=== PATIENT | male | born 1960 | race Caucasian/White ===

== ENCOUNTER 2022-07-24 03:05 | Observation (INO) | payer OTHER ==
[2022-07-24] MEDS ORDERED: METOCLOPRAMIDE 10 MG/2mL INJ ONE (03:28)
[2022-07-24] MEDS ORDERED: GLUCAGON 1 MG/VIAL ONE ×2 (03:29→04:14)
[2022-07-24] MEDS ORDERED: MAGNESIUM SULFATE 1 gm IVPB 1 GM/100 ML BAG IV ONE (03:29)
--- NOTE | 2022-07-24 06:22 | ER ---
Nurse's Notes [facility] Name: Jose L Lyons Age: 61 yrs Sex: Male : 1960 Arrival Date: 07/24/2022 Time: 03:09 Bed 14 Private MD: Diagnosis: Food in esophagus Presentation: 07/24 03:21 Chief complaint: Patient states: Food stuck in my throat after dinner last evening at 7 ke1 pm, usually able to pass it after few minutes, but this time unable to get rid of it. Coronavirus screen: Vaccine status: Patient reports receiving the 2nd dose of the covid vaccine. Ebola Screen: No symptoms or risks identified at this time. Initial Sepsis Screen: Does the patient meet any 2 criteria? No. Patient's initial sepsis screen is negative. Does the patient have a suspected source of infection? No. Patient's initial sepsis screen is negative. Risk Assessment: Do you want to hurt yourself or someone else? Patient reports no desire to harm self or others. Onset of symptoms was July 23, 2022 at 19:00. 03:21 Method Of Arrival: Ambulatory ke1 03:21 Acuity: MICHAEL 3 ke1 Triage Assessment: 03:44 General: Appears uncomfortable, Behavior is appropriate for age. Pain: Complains of ke1 pain in epigastric Pain currently is 3 out of 10 on a pain scale. Neuro: Level of Consciousness is awake, alert, Oriented to person, place, time, situation. Respiratory: Airway is patent Trachea midline Respiratory effort is even, unlabored, Respiratory pattern is regular, symmetrical. GI: Bowel sounds present X 4 quads. Historical: - Allergies: 03:24 No Known Allergies; ke1 - PMHx: 03:24 None; ke1 - PSHx: 03:24 None; ke1 - Immunization history:: Client reports receiving the 2nd dose of the Covid vaccine. - Social history:: Smoking status: Patient denies any tobacco usage or history of. - Family history:: not pertinent. - Hospitalizations: : No recent hospitalization is reported. Screenin:42 [facility] ED Fall Risk Assessment (Adult) History of falling in the last 3 months, ke1 including since admission No falls in past 3 months (0 pts) Confusion or Disorientation No (0 pts) Intoxicated or Sedated No (0 pts) Impaired Gait No (0 pts) Mobility Assist Device Used No (0 pt) Altered Elimination No (0 pt) Score/Fall Risk Level 0 - 2 = Low Risk. Kjy Dumpty Scale Fall Assessment Tool (age< 18yrs) Age 13 years and above (1 pt) Gender Male (2 pts) Diagnosis Other diagnosis (1 pt) Cognitive Impairments Oriented to own ability (1 pt) Environmental Factors Outpatient area (1 pt) Response to Surgery/Sedation/Anesthesia More than 48 hours/None (1 pt) Medication Usage Other medications/ None (1 pt) Fall Risk Score/ Level Low Fall Risk: < 11 points [place] to surroundings. Abuse screen: Denies threats or abuse. Nutritional screening: No deficits noted. Tuberculosis screening: No symptoms or risk factors identified. Fall Risk No fall in past 12 months (0 pts). No secondary diagnosis (0 pts). IV access (20 points). Ambulatory Aid- None/Bed Rest/Nurse Assist (0 pts). Gait- Normal/Bed Rest/Wheelchair (0 pts) Mental Status- Oriented to own ability (0 pts). Total Dunbar Fall Scale indicates No Risk (0-24 pts). 07:15 yes a little, reports difficulty Patient tolerated one teaspoon of water. No drooling, db immediate coughing, gurgling, or clearing of the throat was noted. The patient did not tolerate 90mL of water. Drooling, immediate coughing, gurgling, or clearing of the throat was noted. spits back into bag. Assessment: 05:11 Reassessment: still feeling stuck in the throat area. ke1 07:24 Reassessment: Patient appears in no apparent distress at this time. Patient and/or db family updated on plan of care and expected duration. Pain level reassessed. Patient is alert, oriented x 3, equal unlabored respirations, skin warm/dry/pink. Patient denies pain at this time. General: Appears in no apparent distress. comfortable, Behavior is calm, cooperative, appropriate for age, quiet. Pain: Denies pain. Neuro: No deficits noted. Level of Consciousness is awake, alert, obeys commands, Oriented to person, place, time, Speech is normal, Pupils are PERRLA. Respiratory: No deficits noted. Reports Airway is patent Respiratory effort is even, unlabored, Respiratory pattern is regular, symmetrical. GI: No deficits noted. No signs and/or symptoms were reported involving the gastrointestinal system. : No deficits noted. No signs and/or symptoms were reported regarding the genitourinary system. 07:41 Reassessment: DR. GUAMAN AT PATIENT BEDSIDE. patient reports that he can drink water. db Vital Signs: 03:21 BP 138 / 85; Pulse 79; Resp 17; Temp 97.9; Pulse Ox 99% ; Weight 80.74 kg; Height 5 ft. ke1 11 in. (180.34 cm); Pain 7/10; 05:12 BP 123 / 77; Pulse 69; Resp 17; Pulse Ox 99% on R/A; Pain 0/10; ke1 06:00 BP 114 / 88; Pulse 64; Resp 17; Pulse Ox 100% ; Pain 0/10; ke1 07:00 BP 121 / 77; Pulse 58; Resp 16; Temp 98.2(O); Pulse Ox 98% on R/A; db 08:04 BP 128 / 67; Pulse 65; Resp 16; Pulse Ox 98% on R/A; db 03:21 Body Mass Index 24.83 (80.74 kg, 180.34 cm) ke1 ED Course: 03:09 Patient arrived in ED. bp1 03:10 Yobany Jennings MD is Attending Physician. rn 03:21 Oscar Odom RN is Primary Nurse. ke1 03:24 Triage completed. ke1 03:30 Inserted saline lock: 20 gauge in right antecubital area, using aseptic technique. ke1 03:45 Patient has correct armband on for positive identification. Bed in low position. Call ke1 light in reach. Side rails up X 1. 03:45 Arm band placed on left wrist. ke1 06:22 Edilberto Guaman MD is Hospitalizing Provider. rn 06:31 SARS RAPID Sent. ke1 08:08 Soft Tissue Neck Wo Contr In Process Unspecified. EDMS 08:08 Thorax Wo Con In Process Unspecified. EDMS 09:23 Primary Nurse role handed off by Oscar Odom, TANIYA db 09:23 Beverley Mina, TANIYA is Primary Nurse. db Administered Medications: 03:35 Drug: Glucagon 1 mg Route: IVP; Site: right antecubital; ke1 04:05 Follow up: Response: Other; Unchanged stiil feel stuck ke1 03:35 Drug: Magnesium Sulfate 1 grams Route: IVPB; Infused Over: 1 hrs; Site: right ke1 antecubital; 03:35 Drug: Reglan (metoCLOPramide) 5 mg Route: IVP; Site: right antecubital; ke1 06:26 Follow up: Response: No adverse reaction ke1 04:17 Drug: Glucagon 1 mg Route: IVP; Site: right antecubital; ke1 06:26 Follow up: still stuck ke1 Medication: 07:36 VIS not applicable for this client. db Intake: Outcome: 06:22 Decision to Hospitalize by Provider. rn 13:12 Patient left the ED. ap3 Signatures: Dispatcher [employer] EDMS Yobany Jennings MD MD rn Prokisch, Amanda, RN RN ap3 Sonja Last Kouassi, RN RN ke1 Beverley Mina RN RN db Corrections: (The following items were deleted from the chart) 06:31 03:21 Chief complaint: Patient states: Food stuck in my chest after dinner last evening ke1 at 7 pm, usually able to pass it after few minutes, but this time unable to get rid of it ke1 06:32 05:11 Reassessment: still feeling stuck in the chest area. ke1 ke1
--- NOTE | 2022-07-24 06:22 | EDPHYS ---
Physician Documentation [facility] Name: Jose L Lyons Age: 61 yrs Sex: Male : 1960 Arrival Date: 07/24/2022 Time: 03:09 Bed 14 Private MD: ED Physician Yobany Jennings HPI: 07/24 03:19 This 61 yrs old Male presents to ER via Unassigned with complaints of Food stuck in rn throat. 03:19 The patient presents to the emergency department with vomiting. Onset: The rn symptoms/episode began/occurred 8 hour(s) ago. Possible causes:. The symptoms are aggravated by water The symptoms are alleviated by nothing. Associated signs and symptoms: Pertinent positives: vomiting, Pertinent negatives: abdominal pain, GI bleeding. Severity of symptoms: At their worst the symptoms were moderate in the emergency department the symptoms are unchanged. The patient has experienced similar episodes in the past. The patient has not recently seen a physician. Pt reports eating steak last night, feels like got stuck in esophagus, has happened multiple times in past, has never had to come to ER for this. Able to swallow spit and small sips of water, but more than that will make him throw up. [place] fine prior to dinner. . Historical: - Allergies: 03:24 No Known Allergies; ke1 - PMHx: 03:24 None; ke1 - PSHx: 03:24 None; ke1 - Immunization history:: Client reports receiving the 2nd dose of the Covid vaccine. - Social history:: Smoking status: Patient denies any tobacco usage or history of. - Family history:: not pertinent. - Hospitalizations: : No recent hospitalization is reported. ROS: 03:19 Constitutional: Negative for fever, chills, and weight loss, Eyes: Negative for injury, rn pain, redness, and discharge, Neck: Negative for injury, pain, and swelling, Cardiovascular: Negative for chest pain, palpitations, and edema, Respiratory: Negative for shortness of breath, cough, wheezing, and pleuritic chest pain, Abdomen/GI: + food bolus sensation in esophagus MS/Extremity: Negative for injury and deformity, Skin: Negative for injury, rash, and discoloration, Neuro: Negative for headache, weakness, numbness, tingling, and seizure. Exam: 03:19 Constitutional: This is a well developed, well nourished patient who is awake, alert, rn and in no acute distress. Cardiovascular: Regular rate and rhythm. No pulse deficits. Respiratory: Speaking full sentences, unlabored. No increased work of breathing, no retractions or nasal flaring. Abdomen/GI: soft, non-tender Skin: No cyanosis Vital Signs: 03:21 BP 138 / 85; Pulse 79; Resp 17; Temp 97.9; Pulse Ox 99% ; Weight 80.74 kg; Height 5 ft. ke1 11 in. (180.34 cm); Pain 7/10; 05:12 BP 123 / 77; Pulse 69; Resp 17; Pulse Ox 99% on R/A; Pain 0/10; ke1 06:00 BP 114 / 88; Pulse 64; Resp 17; Pulse Ox 100% ; Pain 0/10; ke1 07:00 BP 121 / 77; Pulse 58; Resp 16; Temp 98.2(O); Pulse Ox 98% on R/A; db 08:04 BP 128 / 67; Pulse 65; Resp 16; Pulse Ox 98% on R/A; db 03:21 Body Mass Index 24.83 (80.74 kg, 180.34 cm) ke1 MDM: 03:10 Patient medically screened. rn 05:04 ED course: Pt reports slight improvement, can get some more water down, but still feels rn food bolus. Offered admission for GI consultation and removal with scope, he wants more time to see if it will pass. . 06:20 Differential diagnosis: impacted food bolus in esophagus. Data reviewed: vital signs, rn nurses notes, and as a result, I will admit patient. Counseling: I had a detailed discussion with the patient and/or guardian regarding: the historical points, exam findings, and any diagnostic results supporting the discharge/admit diagnosis, the need for outpatient follow up, to return to the emergency department if symptoms worsen or persist or if there are any questions or concerns that arise at home. Response to treatment: the patient's symptoms have mildly improved after treatment, and as a result, I will admit patient. Admission orders: after a detailed discussion of the patient's condition and case, the admit orders are written by me. 06:20 ED course: Pt still uncomfortable, no airway compromise, will have to admit for GI rn evaluation and removal/scope. . 12/12 06:22 Order name: SARS RAPID rn 07/24 07:48 Order name: CBC with Automated Diff EDMS 07/24 07:48 Order name: Comprehensive Metabolic Panel EDMS 07/24 07:48 Order name: Lipase EDMS 07/24 07:48 Order name: Protime (+INR) EDMS 07/24 07:48 Order name: PTT, Activated Partial Thromb EDMS 07/24 07:48 Order name: Soft Tissue Neck Wo Contr EDMS 07/24 07:48 Order name: Thorax Wo Con EDMS 07/24 11:24 Order name: NT PRO-BNP EDMS 07/24 11:24 Order name: Lipid Profile EDMS 07/24 11:27 Order name: Hemoglobin A1c EDMS 07/24 03:18 Order name: IV Start; Complete Time: 03:42 rn 07/24 09:46 Order name: CONS Physician Consult EDMS 07/24 09:46 Order name: NPO EDMS Administered Medications: 03:35 Drug: Glucagon 1 mg Route: IVP; Site: right antecubital; ke1 04:05 Follow up: Response: Other; Unchanged stiil feel stuck ke1 03:35 Drug: Magnesium Sulfate 1 grams Route: IVPB; Infused Over: 1 hrs; Site: right ke1 antecubital; 03:35 Drug: Reglan (metoCLOPramide) 5 mg Route: IVP; Site: right antecubital; ke1 06:26 Follow up: Response: No adverse reaction ke1 04:17 Drug: Glucagon 1 mg Route: IVP; Site: right antecubital; ke1 06:26 Follow up: still stuck ke1 Disposition Summary: 07/24/22 06:22 Hospitalization Ordered Hospitalization Status: Observation rn Provider: Edilberto Guaman rn Condition: Stable rn Problem: new rn Symptoms: are unchanged rn Bed/Room Type: Standard rn Location: [facility] ER HOLD(07/24/22 11:33) Room Assignment: ERHOLD-(07/24/22 11:33) iw Diagnosis - Food in esophagus rn Forms: - Medication Reconciliation Form rn - SBAR form rn Signatures: Dispatcher [employer] EDMS Glo Anton RN RN iw Yobany Jennings MD MD rn Ebrottie, Kouassi, RN RN ke1 Corrections: (The following items were deleted from the chart) : Telemetry/MedSurg (observation) rn iw 06: [facility]
[2022-07-24 06:44] LABS: SARS-CoV-2 Antigen Rapid Res Negative (Negative)
--- NOTE | 2022-07-24 08:12 | P.PN ---
Date of Service: 07/24/22 Attempting to contact GI to arrange for EGD
[2022-07-24] MEDS ORDERED: RSI MEDICATION KIT IV ONE (08:46)
--- NOTE | 2022-07-24 08:46 | RAD REPORT ---
EXAM DESCRIPTION: CT - Soft Tissue Neck Wo Contr - 07/24/2022 8:06 am CLINICAL HISTORY: Neck pain/vomiting COMPARISON: January 2017 TECHNIQUE: Computed axial tomography of the neck was obtained. IV contrast was not requested. Coron al and sagittal reconstruction was performed. All CT scans are performed using dose optimization technique as appropriate and may include automated exposure control or mA/KV adjustment according to patient size. FINDINGS: The pharynx, tongue base, larynx and subglottic trachea appear unremarkable The parotid, submandibular and thyroid glands appear unremarkable. No lymphadenopathy is seen Fluid within the sinuses/mastoids is not seen. IMPRESSION: Unremarkable unenhanced CT scan neck.
--- NOTE | 2022-07-24 08:51 | RAD REPORT ---
EXAM DESCRIPTION: CT - Thorax Wo Con - 07/24/2022 8:06 am CLINICAL HISTORY: Chest pain/vomiting COMPARISON: none TECHNIQUE: Computed axial tomography of the chest was obtained. Contrast was not requested. All CT scans are performed using dose optimization technique as appropriate and may include automated exposure control or mA/KV adjustment according to patient size. FINDINGS: The evaluation of mediastinum, marcia and vessels is limited secondary to lack of IV contras t administration. The lungs are clear. No mediastinal or hilar lymphadenopathy is seen. A pleural effusion is not present. No pericardial effusion Small hiatal hernia. Coronary arterial calcifications Mild dilatation of the entire thoracic esophagus which is fluid-filled. IMPRESSION: Small hiatal hernia. Mild dilatation of the entire thoracic esophagus which is fluid-filled. This could be secondary to st ricture, mass or reflux.
[2022-07-24] MEDS ORDERED: ONDANSETRON 4 MG/2 ML VIAL IV PRN ×2 (09:42→09:59)
[2022-07-24] MEDS ORDERED: MORPHINE 2 MG/ML SYR IV PRN (09:42)
[2022-07-24] MEDS ORDERED: NA CHLORIDE 0.9% 1,000 ML IV SCH (10:00)
--- NOTE | 2022-07-24 10:04 | P.HP ---
Certification for Inpatient Patient admitted to: Observation With expected LOS: <2 Midnights Patient will require the following post-hospital care: None Practitioner: I am a practitioner with admitting privileges, knowledge of patient current condition, hospital course, and medical plan of care. Services: Services provided to patient in accordance with Admission requirements found in Title 42 Section 412.3 of the Code of Federal Regulations Patient History Date of Service: 07/24/22 Reason for admission: Food impaction. History of Present Illness: Patient is a 61-year-old male with no known past medical history who presents with complaint of food stuck in the throat which occurred yesterday after eating a meal of steak/potatoes and sandwich. Patient reported that he has had previous episodes in the past which normally self resolves but this time around symptoms have persisted. Patient reported that he is unable to swallow and feels something stuck in his substernal chest area. Patient reported associated signs and symptoms of nausea and chest discomfort. Patient denies any other signs or symptoms. Symptoms are aggravated or relieved by nothing. Patient decided to present to the hospital for medical evaluation. Allergies No Known Allergies Allergy (Unverified 07/24/22 10:07) Home medications list reviewed: No Home Medications: Atorvastatin Calcium [Lipitor] 20 mg PO BEDTIME #30 tab 07/24/22 - Past Medical/Surgical History -: Hyperlipidemia. Past Surgical History: Reviewed- Non-Contributory - Family History Family History: Reviewed- Non-Contributory - Social History Smoking Status: Never smoker Alcohol use: No CD- Drugs: No Caffeine use: No Place of Residence: Home Review of Systems General: Unremarkable Eyes: Unremarkable ENT: Other (Food stuck in esophagus.) Respiratory: Unremarkable Cardiovascular: Chest Pain Gastrointestinal: Nausea Genitourinary: Unremarkable Musculoskeletal: Unremarkable Integumentary: Unremarkable Neurological: Unremarkable Lymphatics: Unremarkable Physical Examination - Physical Exam General: Alert, In no apparent distress, Oriented x3, Cooperative HEENT: Atraumatic, PERRLA, Mucous membr. moist/pink, EOMI, Sclerae nonicteric Neck: Supple, 2+ carotid pulse no bruit, No LAD, Without JVD or thyroid abnormality Respiratory: Clear to auscultation bilaterally, Normal air movement Cardiovascular: No edema, Regular rate/rhythm, Normal S1 S2 Capillary refill: <2 Seconds Gastrointestinal: Normal bowel sounds, Soft and benign, No tenderness Musculoskeletal: No clubbing, No swelling, No tenderness Integumentary: No rashes, No breakdown, No significant lesion, No tenderness/swelling Neurological: Normal gait, Normal speech, Normal strength at 5/5 x4 extr, Normal tone, Normal affect Lymphatics: No axilla or inguinal lymphadenopathy Assessment and Plan - Plan --Food impaction in esophagus. CT chest indicates mild dilatation of the entire thoracic esophagus which is a fluid filled--findings likely secondary to stricture, mass or reflux. Gastroenterology consulted. We will keep patient NPO. We will await further recommendation from wearing apparel presser. --Dysphagia. Likely secondary to food bolus impaction. Further management per wearing apparel presser. Continue supportive care. --Nausea. Antiemetics on board. Continue IV hydration. --HLD. Continue statin when appropriate. --Chest pain. Likely atypical. Secondary to food bolus impaction. Troponin level pending. Telemetry to monitor for any significant arrhythmia. Continue supportive care. --CKD 2. Baseline functions unknown. We will continue to monitor renal functions. --DVT prophylaxis with SCDs. Discharge Plan: Home Plan to discharge in: 48 Hours - Advance Directives Does patient have a Living Will: No Does patient have a Durable POA for Healthcare: No - Code Status/Comfort Care Code Status Assessed: Yes Physician Review: Patient Assessed, Agree with Above Assessment and Plan Critical Care: No
[2022-07-24] MEDS ORDERED: NA CHLORIDE 0.9% 1,000 ML ONE (12:16)
[2022-07-24] MEDS ORDERED: ONDANSETRON 4 MG/2 ML VIAL ONE (12:16)
[2022-07-24 12:44] LABS: Absolute Lymphocytes (CBC) 1.8 K/uL (0.7-4.9); MPV 8.7 fL (7.6-11.3); RBC Red Blood Cell Count 4.79 M/uL (4.33-5.43)
[2022-07-24 12:48] LABS: Protime INR 0.99
[2022-07-24 12:59] LABS: Albumin 4.1 g/dL (3.4-5.0); Bilirubin Total 2.1 mg/dL (0.2-1.0); Protein, Total 7.5 g/dL (6.4-8.2)
[2022-07-24] MEDS ORDERED: propofoL 200 MG/20 ML VIAL IV ONE (13:24)
[2022-07-24] MEDS ORDERED: LIDOCAINE 1% MPF 5 ML VIAL ONE (13:24)
--- NOTE | 2022-07-24 14:06 | P.SSS ---
Patient History Date of Service: 07/24/22 Reason for admission: Esophageal obstruction History of Present Illness: Patient is a 57-year-old gentleman who came to the hospital after getting a piece of steak stuck in his throat. It appears he had esophageal obstruction and whenever he was trying to drink some water it would come right back up. He has been having persistent nausea since that time and he came to the hospital because he still feels it stuck. Imaging studies revealed there is still in the esophageal obstruction. Patient will be admitted to the hospital for EGD and GI consultation which is pending. Allergies No Known Allergies Allergy (Unverified 07/24/22 10:07) - Past Medical/Surgical History Past Medical History: Patient denies medical history Past Surgical History: Patient denies surgical history - Family History Family History: Reviewed- Non-Contributory - Social History Smoking Status: Never smoker Alcohol use: No CD- Drugs: No Review of Systems 10-point ROS is otherwise unremarkable Physical Examination - Vital Signs Temperature: 98.2 F Blood Pressure: 131/84 Pulse: 69 Respirations: 16 Pulse Ox (%): 99 - Physical Exam General: Alert, In no apparent distress, Oriented x3 HEENT: Atraumatic, PERRLA, Mucous membr. moist/pink, EOMI, Sclerae nonicteric Neck: Supple, 2+ carotid pulse no bruit, No LAD, Without JVD or thyroid abnormality Respiratory: Clear to auscultation bilaterally, Normal air movement Cardiovascular: Regular rate/rhythm, Normal S1 S2, No murmurs Gastrointestinal: Normal bowel sounds, Soft and benign, Non-distended, No tenderness, No rebound, No guarding Musculoskeletal: No clubbing, No swelling, No tenderness Integumentary: No rashes Neurological: Normal gait, Normal speech, Normal strength at 5/5 x4 extr, Normal tone, Sensation intact, Cranial nerves 3-12 intact, Normal affect Lymphatics: No axilla or inguinal lymphadenopathy - Diagnosis (Problem(s)) (1) Esophageal obstruction due to food impaction Current Visit: Yes Status: Acute Treatment Summary: Plan: 1. GI consultation for EGD 2. May need to treat with a PPI as well 3. Anticipate discharge after EGD is completed - Disposition Discharge Date: 07/24/22 Disposition: ROUTINE DISCHARGE Condition: GOOD Patient Discharge Instructions: -DC IV and DC home. -Follow-up with PCP in 1 to 2 weeks. -Follow-up with GI in 1 to 2 weeks. -Please call Dr. Guaman at [phone] if any questions regarding hospital stay. -Please call nursing station at [phone] if any nursing or medication questions. -Return to the emergency room if symptoms worsen Diet: Regular Activity: Fall precautions Critical Care: No Time Spent Managing Pts Care (In Minutes): 45
--- NOTE | 2022-07-24 14:20 | ENDO RPT ---
[address], [address] EGD PROCEDURE REPORT EXAM DATE: 07/24/2022 PATIENT NAME: Jose L Lyons MR#: [id number] BIRTHDATE: 1960 ATTENDING: Felton Nes[address] Dr STATUS: inpatient - 7 CARE ASSOCIATE: Zuri Smith RN and Zoë Ulloa CST INDICATIONS: The patient is a 61 yr old Male here for an EGD due to dysphagia PROCEDURE PERFORMED: EGD, diagnostic MEDICATIONS: Per Anesthesia. TOPICAL ANESTHETIC: none CONSENT: The patient understands the risks and benefits of the procedure and understands that these risks include, but are not limited to: sedation, allergic reaction, infection, perforation and/or bleeding. Alternative means of evaluation and treatment include, among others: physical exam, x-rays, and/or surgical intervention. The patient elects to proceed with this endoscopic procedure. DESCRIPTION OF PROCEDURE: During intra-op preparation period all mechanical medical equipment was checked for proper function. Hand hygiene and appropriate measures for infection prevention was taken. Procedure, possible complications, and alternatives including but not limited to the possibility of bleeding, perforation, tear, infection, sepsis, need for surgery, need for blood transfusion, and anesthesia related complications were explained to the patient. After the risks, benefits and alternatives of the procedure were thoroughly explained, Informed consent was verified, confirmed and timeout was successfully executed by the treatment team. The patient was placed in the left lateral position. The patient was anesthetized with topical anesthesia. Through the anesthetized oropharyngeal area, the scope was passed without any difficulty. The Pentax EG-[id number] ([id number]) endoscope was introduced through the mouth and advanced to the second portion of the duodenum. Retroflexed views revealed no abnormalities. The gastroscope was then slowly withdrawn and removed. LA Class B esophagitis was found in the lower esophagus. A stricture was found in the lower esophagus. A small hiatal hernia was found A nodule was found in the body of the stomach. ADVERSE EVENTS: There were no complications. IMPRESSIONS: 1. LA class B esophagitis in the lower esophagus 2. Moderate inflamed stricture in the lower esophagus - easily passed with endoscope 3. Small hiatal hernia 4. 1 cm submucosal nodule in the body of the stomach RECOMMENDATIONS: 1. anti-reflux regimen 2. CT abdomen if not done recently 3. consider EUS - endoscopic ultrasound for 1 cm submucosal nodule in the body of the stomach REPEAT EXAM: Return in 1 week(s) for EGD. with esophageal dilatation(s) Felton Nesb[address] Dr eSigned: Felton Nesb[address] Dr 07/24/2022 2:19 PM cc: Edilberto Guaman M.D. CPT CODES: ICD9 CODES: PATIENT NAME: Jose L LyonsJose Angel MR#: [id number]
--- NOTE | 2022-07-24 14:27 | ENDO RPT ---
[address], [address] EGD PROCEDURE REPORT EXAM DATE: 07/24/2022 PATIENT NAME: Jose L Lyons MR#: [id number] BIRTHDATE: 1960 ATTENDING: Felton Nesbitt Dr STATUS: inpatient - 7 OFFICE ASST: Zuri Smith RN and Zoë Ulloa CST INDICATIONS: The patient is a 61 yr old Male here for an EGD due to dysphagia, esophageal meat impaction after 1st bit of steak from [employer] PROCEDURE PERFORMED: EGD, diagnostic MEDICATIONS: Per Anesthesia. TOPICAL ANESTHETIC: none CONSENT: The patient understands the risks and benefits of the procedure and understands that these risks include, but are not limited to: sedation, allergic reaction, infection, perforation and/or bleeding. Alternative means of evaluation and treatment include, among others: physical exam, x-rays, and/or surgical intervention. The patient elects to proceed with this endoscopic procedure. DESCRIPTION OF PROCEDURE: During intra-op preparation period all mechanical medical equipment was checked for proper function. Hand hygiene and appropriate measures for infection prevention was taken. Procedure, possible complications, and alternatives including but not limited to the possibility of bleeding, perforation, tear, infection, sepsis, need for surgery, need for blood transfusion, and anesthesia related complications were explained to the patient. After the risks, benefits and alternatives of the procedure were thoroughly explained, Informed consent was verified, confirmed and timeout was successfully executed by the treatment team. The patient was placed in the left lateral position. The patient was anesthetized with topical anesthesia. Through the anesthetized oropharyngeal area, the scope was passed without any difficulty. The Pentax EG-[id number] ([id number]) endoscope was introduced through the mouth and advanced to the second portion of the duodenum. Retroflexed views revealed no abnormalities. The gastroscope was then slowly withdrawn and removed. LA Class B esophagitis was found in the lower esophagus. A stricture was found in the lower esophagus. A small hiatal hernia was found A nodule was found in the body of the stomach. ADVERSE EVENTS: There were no complications. IMPRESSIONS: 1. LA class B esophagitis in the lower esophagus 2. Moderate inflamed stricture in the lower esophagus - easily passed with endoscope 3. Small hiatal hernia 4. 1 cm submucosal nodule in the body of the stomach RECOMMENDATIONS: 1. anti-reflux regimen 2. CT abdomen if not done recently 3. consider EUS - endoscopic ultrasound for 1 cm submucosal nodule in the body of the stomach REPEAT EXAM: Return in 1 week(s) for EGD. with esophageal dilatation(s) Felton Nesb[address] Dr eSigned: Felton Nesbitt Dr 07/24/2022 2:27 PM Revised: 07/24/2022 2:27 PM cc: Edilberto Guaman M.D. CPT CODES: ICD9 CODES: PATIENT NAME: Jose L Lyons MR#: [id number]
[2022-07-24 15:00] VITALS: TEMP 97.9; O2SAT 100
[2022-07-24 15:06] VITALS: BP 102/79
--- NOTE | 2022-07-25 14:15 | RAD REPORT ---
EXAM DESCRIPTION: CTAbdomen Pelvis W/Wo Contrast - 07/24/2022 3:31 pm CLINICAL HISTORY: 1 cm submucosal mass in body of stomach COMPARISON: Thorax Wo Con dated 07/24/2022; Soft Tissue Neck Wo Contr dated 07/24/2022 TECHNIQUE: CT of the abdomen and pelvis was performed with and without contrast. All CT scans are performed using dose optimization technique as appropriate and may include automated exposure control or mA/KV adjustment according to patient size. FINDINGS: Lower chest: No acute abnormality. Liver: 11 mm low-density lesion left hepatic lobe is likely benign. Biliary: No biliary ductal dilatation. Stomach: No significant focal abnormality. Duodenum: No significant focal abnormality. Pancreas: No significant abnormality. Spleen: No significant abnormality. Adrenal: No suspicious lesions. Kidney/ureter: No hydronephrosis. No renal calculi. Retroperitoneum: No retroperitoneal adenopathy. Vascular: No aneurysm. Bowel: No significant focal abnormality. Peritoneum: No ascites or free air. Bladder: Grossly unremarkable. Reproductive: No adnexal masses. Probable bilateral varicoceles. Bones: No acute fracture. Other: n/a IMPRESSION: No gastric mass identified. Multiple incidental findings as noted above.
== END 2022-07-24 15:42 | disposition home or self-care (01) ==
LOC: ER 03:05 → ERHOLD 09:42
PROVIDERS: ADMIT Hospitalist; ATTEND Hospitalist
PROC: 0DJ08ZZ Inspection of Upper Intestinal Tract, Via Natural or Artificial Opening Endoscopic (ICD-10-PCS; principal; 2022-07-24 13:15)
DX: K22.2 Esophageal obstruction (principal); K20.90 Esophagitis, unspecified without bleeding; K44.9 Diaphragmatic hernia without obstruction or gangrene; K29.60 Other gastritis without bleeding; R13.10 Dysphagia, unspecified; E78.5 Hyperlipidemia, unspecified; R07.89 Other chest pain; N18.2 Chronic kidney disease, stage 2 (mild); Z20.822 Contact with and (suspected) exposure to COVID-19
CPT/HCPCS: 85025; 36415; 85610; 80061; 85730; 83036; 83690; 80053; 83880; 70490; 71250; 74178; 87811; 43235; Q9967; J2704; J1610 ×2; J2765; J2001; J3475; G0378 ×3; J7030; J2405; 96374; 96375; 99284